=== PATIENT | female | born 1985 | race Caucasian/White ===

== ENCOUNTER → 2016-06-26 13:57 | Emergency (ER) | payer BC ==
[~2016-06-26 13:57] MED LIST: oxyCODONE/Acetamin 5/325 MG* TAB PO ONE
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
[2016-06-26 14:35] VITALS: BP 124/88
--- NOTE | 2016-06-26 14:54 | RAD ---
INDICATION: Left hand injury COMPARISON: None TECHNIQUE: AP, lateral, and oblique views were obtained. FINDINGS: No acute fracture is seen. The joint spaces and soft tissues appear normal. There are 4 rings which by report could not be removed. IMPRESSION: NO ACUTE FRACTURE IS IDENTIFIED.
--- NOTE | 2016-06-26 14:55 | RAD ---
INDICATION: Left wrist injury COMPARISON: None TECHNIQUE: AP, lateral, and oblique views were obtained. FINDINGS: The bony structures, joint spaces, and soft tissues are normal for age. IMPRESSION: NO ACUTE FRACTURE.
== END | disposition home or self-care (01) ==
LOC: ED 13:57
DX: S62.102A Fracture of unspecified carpal bone, left wrist, initial encounter for closed fracture (principal); M79.1 Myalgia; V86.59XA Driver of other special all-terrain or other off-road motor vehicle injured in nontraffic accident, initial encounter; Y93.9 Activity, unspecified; Y92.9 Unspecified place or not applicable; Y99.9 Unspecified external cause status
CPT/HCPCS: 99282; A9270-GY

== ENCOUNTER 2017-11-21 07:46 | Inpatient (IN) | payer BC, MEDICAID ==
--- NOTE | 2017-11-21 08:51 | HP ---
General Information - Reason for Visit IUP at 39-04/12 here for elective term induction - General Information Maternal Age: 31 Grav: 3 Para: 2 SAB: 0 IEA: 0 Estimated Due Date: 11/25/17 Determined By: Early Ultrasound Gestational Age in Weeks/Days: 39-7 Maternal Blood Type and Rh: A Positive - Results this Serology/RPR Result: Non-Reactive Rubella Result: Immune HBsAg Result: Negative HIV Result: Negative GBS Culture Result: Negative Past Medical History Delivery History: Hx Uncomplicated Vaginal Delivery Delivery History Comment: 08/2005 7lb male. [facility]. FOB #1 03/2008 7lb 7oz female. [facility]. FOB #1 Pertinent Past Medical History: See Records Past Medical History Comment: 2008 Kidney stones Migraine without aura Pertinent Past Surgical History: See Records Past Surgical History Comment: 2008 Lithotripsy with stents placed Pertinent Family History: See Records Family History Comment: PGF: . [place] - Antepartal Records Antepartal Records: Reviewed, Complicated by: - +Chlamydia, treated Review of Systems Constitutional: Comfortable CV Complaint: No Respiratory: Shortness of Breath: No Gastrointestinal: No Nausea/Vomiting, Normal Bowel Movement Genitourinary: No Dysuria, No Bleeding, No Leaking Fluid Musculoskeletal: No Complaint Neurological: No Headache, No Visual Changes Movement: Normal Exam Allergies/Adverse Reactions: Allergies No Known Allergies Allergy (Verified 06/26/16 15:23) BP 133/81 Repeat 126/74 HR 89 RR 18 T 97.2 SpO2 100% on RA - Measurements Height: 5 ft 2 in Weight: 169 lb Weight in lbs: 169.097874 Body Mass Index (BMI): 30.9 Pre- Weight: 130 lb Weight Gained This : 39 lbs and 0 ozs - Exam Breast: Breast Exam Deferred CVA: No CVA Tenderness Extremities: No Edema Heart: Normal Rhythm/Heart Sounds HEENT: No Significant Findings Lungs: Clear Bilaterally Rectal: Rectal Exam Deferred Reflexes: DTR 2+ Thyroid: No Thyromegaly - Abdominal Exam Abdomen Exam: Non-Tender - Ultrasound/Biophysical Profile Ultrasound Status: Not Done Targeted Exam Findings See L&D Outpatient Visit Provider Note for Findings: N/A Cervical Exam: 3cm Effacement: 80% Station: -1 Presenting Part: Vertex Membrane Status: Intact Sterile Speculum Exam: Not done Bleeding/Discharge: None EFM Findings - External Monitor Findings Baseline Heart Rate: 125 External Monitor Findings: Accelerations Present, No Pattern of Variable or Late Decelerations, Variability Moderate, Baseline Stable External Monitor Findings Comment: No evidence of metabolic acidemia Contractions: Irregular, Mild Assessment/Plan - Assessment IUP at 39-3/7 here for elective term induction Cervix favorable with Bishops score of 9 (11 with modifier of 2 previous SVDs) No evidence of metabolic acidemia - Obstetrical Risk Factors Risk Factors Comment: +Chlamydia x 2. Treated both times. Final JOE collected 11/17/17. Per lab result will be available by 1300 today. In consultation with neonatology ok to proceed with planned delivery. Treat with eye ointment per protocol and monitor closely for respiratory symptoms . Both pt and FOB aware and agree with plan - Plan Plan: Induction Plan Comment: Counseled for IV pitocin vs. oral or vaginal misoprostol. Pt prefers IV pitocin. Admit. Anticipate - Date/Time of Admission Date of Admission: 11/21/17 Time of Admission: 08:55
[2017-11-21] MEDS ORDERED: Oxytocin in LR* 20 UNITS/1,000 ML BAG IVPB SCH ×2 (09:00→18:00)
[2017-11-21 09:17] LABS: ABS Basophils 0.1 10^3/ul (0-0.2); ABS Eosinophils 0 10^3/ul (0-0.6); ABS Monocytes 0.8 10^3/ul (0-0.8); ABS Neutrophils 10.9 10^3/ul (1.5-7.7); ABS Nucleated RBC 0 10^3/ul; Eosinophil % 0.2 % (0-6); Hematocrit 34 % (35-47); Hemoglobin 11.8 g/dl (12.0-16.0); Lymphocyte % 20.4 % (25-47); Mean Corpuscular HGB Conc 34 g/dl (31-36); Mean Corpuscular Hemoglobin 27 pg (27-31); Mean Corpuscular Volume 78 fL (80-97); Mean Platelet Volume 8.7 um3 (7.4-10.4); Nucleated Red Blood Cells % 0.1; Platelet Count 247 10^3/ul (150-450); Red Blood Count 4.41 10^6/ul (4.00-5.40); Red Cell Distribution Width 13 % (10.5-15); White Blood Count 14.8 10^3/ul (3.5-10.8)
--- NOTE | 2017-11-21 13:54 | PN ---
Progress Note - Progress Note Date of Service: 11/21/17 Note: S: Pt more aware of UCs but coping well. FOB at bedside supporting her O: BP 125/74 HR 64 FHT 120bpm. Moderate variability. +Accels. No decels UCs q 2-3 min. IV pit at 12mu/min VE: 4cm/80%/vtx -1 AROM clear fluid A: IUP at 39-3/7 here for IOL No evidence of metabolic acidemia Early active labor P: Pt will request pain mgmt PRN. Continue IV pitocin. Close monitoring of maternal/ status
[2017-11-21] MEDS ORDERED: Azithromycin TAB* 250 MG PO ONE (14:29)
[2017-11-21] MEDS ORDERED: OBEPIDURAL* 250 ML EPIDURAL ONE (14:42)
[2017-11-21] MEDS ORDERED: Phenylephrine IV* 40 MCG/ML 10 ML SYRINGE IV PUSH PRN ×2 (15:11)
[2017-11-21] MEDS ORDERED: Famotidine TAB* 20 MG PO PRN (15:11)
[2017-11-21] MEDS ORDERED: EPHEDrine (Pressors)* 50 MG/ML VIAL IV PUSH PRN ×2 (15:11)
[2017-11-21] MEDS ORDERED: Sodium Citrate/Citric Acid* 15 ML UDC PO PRN (15:11)
[2017-11-21] MEDS ORDERED: OBEPIDURAL* 250 ML EPIDURAL SCH (16:00)
[2017-11-21] MEDS ORDERED: fentaNYL* 50 MCG/ML 2 ML VIAL (100 MCG VIAL) ONE (16:48)
[2017-11-21] MEDS: Tranexamic Acid 1,000 MG/10 ML SDV IV ONE ×2 (16:55→17:52)
[2017-11-21] MEDS ORDERED: Misoprostol TAB* 200 MCG ONE (17:01)
[2017-11-21] MEDS ORDERED: ceFOXitin 2 GM IVPREMIX* 2 GM/50 ML BAG IVPB ONE (17:06)
[2017-11-21] MEDS ORDERED: fentaNYL* 50 MCG/ML 2 ML VIAL (100 MCG VIAL) IV SLOW PU ONE (17:06)
[2017-11-21] MEDS ORDERED: Carboprost Tromethamine* 250 MCG INJ ONE ×3 (17:10→19:26)
[2017-11-21 17:26] LABS: Hematocrit 32 % (35-47); Hemoglobin 10.9 g/dl (12.0-16.0); Mean Corpuscular HGB Conc 34 g/dl (31-36); Mean Corpuscular Hemoglobin 27 pg (27-31); Mean Corpuscular Volume 80 fL (80-97); Mean Platelet Volume 7.8 um3 (7.4-10.4); Platelet Count 207 10^3/ul (150-450); Red Blood Count 4.06 10^6/ul (4.00-5.40); Red Cell Distribution Width 14 % (10.5-15); White Blood Count 27.8 10^3/ul (3.5-10.8)
[2017-11-21] MEDS ORDERED: Carboprost Tromethamine* 250 MCG INJ IM ONE (17:31)
[2017-11-21] MEDS ORDERED: Methylergonovine INJ* 0.2 MG/ML 1ML AMP IM ONE (17:31)
[2017-11-21] MEDS ORDERED: Glycerin ADULT SUPP PR PRN (17:31)
[2017-11-21] MEDS ORDERED: Dibucaine 1% 28.35 GM TUBE PR PRN (17:31)
[2017-11-21] MEDS ORDERED: Witch Hazel PAD* JAR TOPICAL PRN (17:31)
[2017-11-21] MEDS ORDERED: Misoprostol TAB* 200 MCG PR ONE (17:31)
[2017-11-21 17:51] LABS: ABS Basophils 0.2 10^3/ul (0-0.2); ABS Eosinophils 0 10^3/ul (0-0.6); ABS Lymphocytes 1.4 10^3/ul (1.0-4.8); ABS Monocytes 0.4 10^3/ul (0-0.8); ABS Neutrophils 25.7 10^3/ul (1.5-7.7)
[2017-11-21 17:52] LABS: ABS Nucleated RBC 0 10^3/ul
[2017-11-21 17:56] LABS: ABS Basophils 0 10^3/ul (0-0.2); Monocytes % 1 % (0-7)
--- NOTE | 2017-11-21 18:38 | PROCNOTE ---
[facility] OB: Delivery Note - Delivery A Date of : 11/21/17 Time of : 16:35 [place] Sex: Female Weight at : 7 lb 1 oz Score 1 Minute: 7 Score 5 Minutes: 9 Gestational Age in Weeks and Days at Delivery: 39 Weeks and 3 Days Delivery Method: Spontaneous Vaginal Labor: Induced Did Patient attempt ?: N/A, No Previous Amniotic Fluid: Clear Estimated Blood Loss: 2,000 Anesthesia/Analgesia: CEI for Labor Anesthesia Comment: Epidural placed by Dr. Bill Delivered By: Arnel Nicholas - Nursery Level of Nursery: Regular/Bedside - Perineum Perineal Injury Comment: Vaginal abrasion at introitus. Repaired with 3-0 Rapide Perineal Repair: By Delivering Practioner - Events Delivery Events of Note: Pitocin During Labor, Supplemental O2 to Mother, Post- Bleeding - Meds Given, Manual Removal of Placenta - By Dr. Paez, D+C Post-Delivery - Pt transported to OR at the time of this note, Internal Scalp EKG Delivery Events of Note Comment: Category II FHT with rapid cervical change from 6cm to complete. Down to 70bpm. Recovered to 90's/100's and moderate variability maintained. Supplemental O2 to mother, IV pitocin discontinued, IV fluids administered, FSE applied. Neonatology and ob-regulator tester paged to attend delivery. Given rapid cervical change and strong maternal pushing effort able to proceed with normal vaginal - Risk for Falls Delivered OB Patient- Risk for Falls: Heavy Bleeding Fall Risk: Patient is at High Risk for Falls - Additional Delivery Notes Additional Delivery Notes: Pt admitted for elective term induction of labor. IV pitocin and amniotomy to clear fluid resulted in onset active labor. As above rapid progression from 6cm to complete and category II FHT noted with decels down to 70bpm. Recovered to 90 's-100's and moderate variability maintained. Length of active phase 3 hours, 9 min. Pushed x 30 min. liveborn female. Slow, controlled delivery of head. Direct OP to LOP. Shoulders followed easily. to maternal abdomen. Cord pulsed x 30 seconds per neonatology. Cord then clamped and cut and moved to warmer for further evaluation by neonatology and special care nurse. Apgars 7/9. With gentle cord traction cord avulsed. Dr. Paez paged to bedside for assistance with delivery of placenta. Manual removal of placenta by MD see MD note for all management going forward.
[2017-11-21] MEDS ORDERED: Midazolam* 1 MG/ML 5 ML VIAL (5 MG) ONE (18:40)
[2017-11-21] MEDS ORDERED: KETAMINE HCL* 50 MG/ML 10 ML VIAL ONE (18:45)
[2017-11-21] MEDS ORDERED: Lidocaine 2% PF * 5 ML VIAL ONE (19:05)
[2017-11-21 19:12] LABS: Hematocrit 31 % (35-47); Hemoglobin 10.4 g/dl (12.0-16.0); Mean Corpuscular HGB Conc 34 g/dl (31-36); Mean Corpuscular Hemoglobin 29 pg (27-31); Mean Corpuscular Volume 84 fL (80-97); Red Blood Count 3.64 10^6/ul (4.00-5.40); Red Cell Distribution Width 17 % (10.5-15)
[2017-11-21 19:37] LABS: Hematocrit 29 % (35-47); Mean Corpuscular HGB Conc 34 g/dl (31-36); Mean Corpuscular Hemoglobin 29 pg (27-31); Mean Corpuscular Volume 84 fL (80-97); Red Blood Count 3.49 10^6/ul (4.00-5.40); Red Cell Distribution Width 16 % (10.5-15); White Blood Count 16.6 10^3/ul (3.5-10.8)
[2017-11-21 19:43] LABS: INR 1.2 (0.77-1.02)
[2017-11-21] MEDS ORDERED: Magnesium Sulfate IV* 3 GM in NS 0.9% 100 ML* 100 ML IVPB ONE (20:30)
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
[2017-11-21] MEDS ORDERED: Ondansetron INJ* 2 MG/ML VIAL IV PRN (20:48)
[2017-11-21] MEDS ORDERED: Morphine VIAL* 4 MG/ML VIAL (1 ml vial) IV PRN (21:06)
[2017-11-21 21:08] LABS: EGFR Non-African American 46.6 (>60)
[2017-11-21 21:20] LABS: ABS Basophils 0.1 10^3/ul (0-0.2); ABS Eosinophils 0 10^3/ul (0-0.6); ABS Lymphocytes 0.6 10^3/ul (1.0-4.8); ABS Monocytes 0.8 10^3/ul (0-0.8); ABS Neutrophils 14.4 10^3/ul (1.5-7.7); ABS Nucleated RBC 0 10^3/ul; Eosinophil % 0.1 % (0-6); Lymphocyte % 3.9 % (25-47); Mean Platelet Volume 7.2 um3 (7.4-10.4); Nucleated Red Blood Cells % 0.1; Platelet Count 78 10^3/ul (150-450)
[2017-11-21 21:22] LABS: ABS Basophils 0 10^3/ul (0-0.2); ABS Eosinophils 0 10^3/ul (0-0.6); ABS Lymphocytes 0.9 10^3/ul (1.0-4.8); ABS Monocytes 1.1 10^3/ul (0-0.8); ABS Neutrophils 14.6 10^3/ul (1.5-7.7); ABS Nucleated RBC 0 10^3/ul; Eosinophil % 0.1 % (0-6); Lymphocyte % 5.2 % (25-47); Mean Platelet Volume 7.1 um3 (7.4-10.4); Nucleated Red Blood Cells % 0; Platelet Count 77 10^3/ul (150-450)
[2017-11-21] MEDS: ceFOXitin 2 GM IVPREMIX* 2 GM/50 ML BAG IVPB SCH (21:54)
[2017-11-21] MEDS: Docusate CAP* 100 MG PO SCH (22:39)
[2017-11-21 23:00] LABS: Mean Platelet Volume 7.4 um3 (7.4-10.4); Platelet Count 80 10^3/ul (150-450)
[2017-11-21] MEDS: Simethicone TAB* 80 MG TAB.CHEW PO SCH (23:07)
[2017-11-22] LABS: INR 1.09 (0.77-1.02)
[2017-11-22 00:03] LABS: Hematocrit 27 % (35-47); Hemoglobin 9.2 g/dl (12.0-16.0); Mean Corpuscular HGB Conc 35 g/dl (31-36); Mean Corpuscular Hemoglobin 29 pg (27-31); Mean Corpuscular Volume 83 fL (80-97); Mean Platelet Volume 7.6 um3 (7.4-10.4); Platelet Count 80 10^3/ul (150-450); Red Cell Distribution Width 16 % (10.5-15); White Blood Count 20.4 10^3/ul (3.5-10.8)
[2017-11-22 00:22] LABS: EGFR Non-African American 41.8 (>60)
[2017-11-22 02:12] LABS: Hematocrit 22 % (35-47); Hemoglobin 7.8 g/dl (12.0-16.0); Mean Corpuscular HGB Conc 35 g/dl (31-36); Mean Corpuscular Hemoglobin 29 pg (27-31); Mean Corpuscular Volume 82 fL (80-97); Mean Platelet Volume 7.4 um3 (7.4-10.4); Platelet Count 100 10^3/ul (150-450); Red Blood Count 2.71 10^6/ul (4.00-5.40); Red Cell Distribution Width 16 % (10.5-15); White Blood Count 21.1 10^3/ul (3.5-10.8)
[2017-11-22 02:28] LABS: EGFR Non-African American 42.5 (>60)
[2017-11-22 02:35] LABS: INR 1.02 (0.77-1.02)
[2017-11-22] MEDS: ceFOXitin 2 GM IVPREMIX* 2 GM/50 ML BAG IVPB SCH ×3 (03:36→16:58)
[2017-11-22 06:16] LABS: Hematocrit 27 % (35-47); Hemoglobin 9.3 g/dl (12.0-16.0); Mean Corpuscular HGB Conc 34 g/dl (31-36); Mean Corpuscular Hemoglobin 29 pg (27-31); Mean Corpuscular Volume 83 fL (80-97); Mean Platelet Volume 7.9 um3 (7.4-10.4); Platelet Count 92 10^3/ul (150-450); Red Blood Count 3.24 10^6/ul (4.00-5.40); Red Cell Distribution Width 17 % (10.5-15); White Blood Count 20.1 10^3/ul (3.5-10.8)
[2017-11-22 06:33] LABS: EGFR Non-African American 41.5 (>60)
[2017-11-22 06:38] LABS: INR 0.97 (0.77-1.02)
--- NOTE | 2017-11-22 07:56 | RAD ---
HISTORY: dyspnea COMPARISONS: None VIEWS: 1: frontal AP view of the chest at 8:41 PM FINDINGS: LINES AND TUBES: None. CARDIOMEDIASTINAL SILHOUETTE: The cardiomediastinal silhouette is normal for portable technique. PLEURA: The costophrenic angles are sharp. No pleural abnormalities are noted. LUNG PARENCHYMA: The lungs are clear. ABDOMEN: The upper abdomen is clear. There is no subphrenic gas. BONES AND SOFT TISSUES: No bone or soft tissue abnormalities are noted. IMPRESSION: NO ACTIVE CARDIOPULMONARY DISEASE. R1
[2017-11-22] MEDS: Ibuprofen TAB* 600 MG PO PRN ×2 (08:37→13:41)
[2017-11-22] MEDS: Docusate CAP* 100 MG PO SCH ×3 (08:37→21:15)
[2017-11-22] MEDS: Ferrous Gluconate TAB* 324 MG TAB PO SCH ×2 (08:37→21:15)
[2017-11-22] MEDS: Simethicone TAB* 80 MG TAB.CHEW PO SCH ×4 (08:37→21:15)
--- NOTE | 2017-11-22 09:33 | PN ---
Date of Service: 11/22/17 Critical Care Services: 31F with migraines, kidney stones presents for post hemorrage s/p D&E. Massive transfusion protocol. 11/22: Doing better this AM. Bleeding is slowing. BP stable. Received total 10u PRBC, 20u cryo, 7u FFP, 1u Plt total. Vital Signs: Temp Pulse Resp BP SpO2 FiO2 98.1 F 67 20 141/69 97 11/22/17 08:00 11/22/17 08:00 11/22/17 08:00 11/22/17 08:00 11/22/17 08:00 Physical Exam: Gen - NAD Heent - ncat, eomi, perrl neck - no jvd cv - s1/s2, no murmur lungs - cta, no wheeze Abd - soft, no, nt ext - no cce neuro - non-focal Fluid Balance (Past 24 Hours): I= O= Net Intake & Output 11/20/17 11/21/17 11/22/17 11/23/17 06:59 06:59 06:59 06:59 Intake Total 1506 Output Total 2325 550 Balance -819 -550 Weight 79.3 kg Intake: IV Fluids 140 NS (0.9%) 140 IVPB 100 ABX - CEFOXITIN 100 Medicated IV 99 GEN - Magnesium 99 Oral 0 Packed Cells 567 Platelets 600 Output: [place] 2325 550 Other: Date of Last Bowel 11/22/17 Movement # Bowel Movements 1 Estimated Stool Amount Small Labs: Laboratory Results - last 24 hr 11/21/17 11/21/17 11/21/17 08:55 14:22 17:13 WBC 27.8 H RBC 4.06 Hgb 10.9 L Hct 32 L MCV 80 MCH 27 MCHC 34 RDW 14 Plt Count 207 MPV 7.8 Neut % (Auto) Not Reportable Lymph % (Auto) Not Reportable [place] % (Auto) Not Reportable Eos % (Auto) Not Reportable Baso % (Auto) Not Reportable Absolute Neuts (auto) 25.7 H Absolute Lymphs (auto) 1.4 Absolute Monos (auto) 0.4 Absolute Eos (auto) 0 Absolute Basos (auto) 0.2 Absolute Nucleated RBC 0 Immature Gran % 10 H Neutrophils % 79 Band Neutrophils % 9 H Lymphocytes % 10 L Monocytes % 1 Eosinophils % 0 Basophils % 0 Metamyelocytes % 1 Nucleated RBC % Not Reportable Abs Neuts (Manual) 22.0 H Abs Lymphs (Manual) 2.8 Abs Monocytes (Manual) 0.3 Absolute Eos (Manual) 0 Abs Basophils (Manual) 0 Normal RBC Morphology Normal INR (Anticoag Therapy) APTT Fibrinogen Sodium 138 Potassium TNP Chloride 110 Carbon Dioxide 20 L Anion Gap 8 BUN 13 Creatinine 1.32 H Est GFR ( Amer) 56.4 Est GFR (Non-Af Amer) 46.6 BUN/Creatinine Ratio 9.8 Glucose 93 Calcium 7.4 L Magnesium Blood Type A Positive Antibody Screen Negative Crossmatch See Detail 11/21/17 11/21/17 11/21/17 17:13 18:55 18:55 WBC 16.0 H RBC 3.64 L Hgb 10.4 L Hct 31 L MCV 84 MCH 29 MCHC 34 RDW 17 H Plt Count 78 L D MPV 7.2 L Neut % (Auto) 90.5 H Lymph % (Auto) 3.9 L [place] % (Auto) 5.1 Eos % (Auto) 0.1 Baso % (Auto) 0.4 Absolute Neuts (auto) 14.4 H Absolute Lymphs (auto) 0.6 L Absolute Monos (auto) 0.8 Absolute Eos (auto) 0 Absolute Basos (auto) 0.1 Absolute Nucleated RBC 0 Immature Gran % Neutrophils % Band Neutrophils % Lymphocytes % Monocytes % Eosinophils % Basophils % Metamyelocytes % Nucleated RBC % 0.1 Abs Neuts (Manual) Abs Lymphs (Manual) Abs Monocytes (Manual) Absolute Eos (Manual) Abs Basophils (Manual) Normal RBC Morphology INR (Anticoag Therapy) TNP 1.30 H APTT TNP 41.7 H Fibrinogen TNP < 48.8 L* Sodium Potassium Chloride Carbon Dioxide Anion Gap BUN Creatinine Est GFR ( Amer) Est GFR (Non-Af Amer) BUN/Creatinine Ratio Glucose Calcium Magnesium Blood Type Antibody Screen Crossmatch 11/21/17 11/21/17 11/21/17 19:22 19:22 19:22 WBC 16.6 H RBC 3.49 L Hgb 10.0 L Hct 29 L MCV 84 MCH 29 MCHC 34 RDW 16 H Plt Count 77 L MPV 7.1 L Neut % (Auto) 88.1 H Lymph % (Auto) 5.2 L [place] % (Auto) 6.4 Eos % (Auto) 0.1 Baso % (Auto) 0.2 Absolute Neuts (auto) 14.6 H Absolute Lymphs (auto) 0.9 L Absolute Monos (auto) 1.1 H Absolute Eos (auto) 0 Absolute Basos (auto) 0 Absolute Nucleated RBC 0 Immature Gran % Neutrophils % Band Neutrophils % Lymphocytes % Monocytes % Eosinophils % Basophils % Metamyelocytes % Nucleated RBC % 0 Abs Neuts (Manual) Abs Lymphs (Manual) Abs Monocytes (Manual) Absolute Eos (Manual) Abs Basophils (Manual) Normal RBC Morphology INR (Anticoag Therapy) 1.20 H APTT 38.6 H Fibrinogen 70.8 L* Sodium Potassium Chloride Carbon Dioxide Anion Gap BUN Creatinine Est GFR ( Amer) Est GFR (Non-Af Amer) BUN/Creatinine Ratio Glucose Calcium 7.3 L Magnesium 1.2 L Blood Type Antibody Screen Crossmatch 11/21/17 11/21/17 11/21/17 22:13 22:13 22:13 WBC RBC Hgb Hct MCV MCH MCHC RDW Plt Count 80 L MPV 7.4 Neut % (Auto) Lymph % (Auto) [place] % (Auto) Eos % (Auto) Baso % (Auto) Absolute Neuts (auto) Absolute Lymphs (auto) Absolute Monos (auto) Absolute Eos (auto) Absolute Basos (auto) Absolute Nucleated RBC Immature Gran % Neutrophils % Band Neutrophils % Lymphocytes % Monocytes % Eosinophils % Basophils % Metamyelocytes % Nucleated RBC % Abs Neuts (Manual) Abs Lymphs (Manual) Abs Monocytes (Manual) Absolute Eos (Manual) Abs Basophils (Manual) Normal RBC Morphology INR (Anticoag Therapy) APTT Fibrinogen Sodium 135 Potassium 3.8 3.8 Chloride 110 Carbon Dioxide 20 L Anion Gap 5 BUN 16 Creatinine 1.45 H Est GFR ( Amer) 50.6 Est GFR (Non-Af Amer) 41.8 BUN/Creatinine Ratio 11.0 Glucose 108 H Calcium 7.7 L Magnesium 1.8 L Blood Type Antibody Screen Crossmatch 11/21/17 11/21/17 11/22/17 22:13 22:13 02:01 WBC 20.4 H RBC 3.20 L Hgb 9.2 L Hct 27 L MCV 83 MCH 29 MCHC 35 RDW 16 H Plt Count 80 L MPV 7.6 Neut % (Auto) Lymph % (Auto) [place] % (Auto) Eos % (Auto) Baso % (Auto) Absolute Neuts (auto) Absolute Lymphs (auto) Absolute Monos (auto) Absolute Eos (auto) Absolute Basos (auto) Absolute Nucleated RBC Immature Gran % Neutrophils % Band Neutrophils % Lymphocytes % Monocytes % Eosinophils % Basophils % Metamyelocytes % Nucleated RBC % Abs Neuts (Manual) Abs Lymphs (Manual) Abs Monocytes (Manual) Absolute Eos (Manual) Abs Basophils (Manual) Normal RBC Morphology INR (Anticoag Therapy) 1.09 H APTT Fibrinogen 138.9 Sodium 135 Potassium 3.7 Chloride 107 Carbon Dioxide 22 Anion Gap 6 BUN 17 Creatinine 1.43 H Est GFR ( Amer) 51.5 Est GFR (Non-Af Amer) 42.5 BUN/Creatinine Ratio 11.9 Glucose 110 H Calcium 7.7 L Magnesium 1.9 Blood Type Antibody Screen Crossmatch 11/22/17 11/22/17 11/22/17 02:01 02:01 05:55 WBC 21.1 H RBC 2.71 L Hgb 7.8 L Hct 22 L MCV 82 MCH 29 MCHC 35 RDW 16 H Plt Count 100 L MPV 7.4 Neut % (Auto) Lymph % (Auto) [place] % (Auto) Eos % (Auto) Baso % (Auto) Absolute Neuts (auto) Absolute Lymphs (auto) Absolute Monos (auto) Absolute Eos (auto) Absolute Basos (auto) Absolute Nucleated RBC Immature Gran % Neutrophils % Band Neutrophils % Lymphocytes % Monocytes % Eosinophils % Basophils % Metamyelocytes % Nucleated RBC % Abs Neuts (Manual) Abs Lymphs (Manual) Abs Monocytes (Manual) Absolute Eos (Manual) Abs Basophils (Manual) Normal RBC Morphology INR (Anticoag Therapy) 1.02 APTT Fibrinogen 182.9 Sodium 135 Potassium 4.0 Chloride 108 Carbon Dioxide 23 Anion Gap 4 BUN 17 Creatinine 1.46 H Est GFR ( Amer) 50.2 Est GFR (Non-Af Amer) 41.5 BUN/Creatinine Ratio 11.6 Glucose 96 Calcium 7.8 L Magnesium 1.8 L Blood Type Antibody Screen Crossmatch 11/22/17 11/22/17 05:55 05:55 WBC 20.1 H RBC 3.24 L Hgb 9.3 L Hct 27 L MCV 83 MCH 29 MCHC 34 RDW 17 H Plt Count 92 L MPV 7.9 Neut % (Auto) Lymph % (Auto) [place] % (Auto) Eos % (Auto) Baso % (Auto) Absolute Neuts (auto) Absolute Lymphs (auto) Absolute Monos (auto) Absolute Eos (auto) Absolute Basos (auto) Absolute Nucleated RBC Immature Gran % Neutrophils % Band Neutrophils % Lymphocytes % Monocytes % Eosinophils % Basophils % Metamyelocytes % Nucleated RBC % Abs Neuts (Manual) Abs Lymphs (Manual) Abs Monocytes (Manual) Absolute Eos (Manual) Abs Basophils (Manual) Normal RBC Morphology INR (Anticoag Therapy) 0.97 APTT Fibrinogen 231.3 Sodium Potassium Chloride Carbon Dioxide Anion Gap BUN Creatinine Est GFR ( Amer) Est GFR (Non-Af Amer) BUN/Creatinine Ratio Glucose Calcium Magnesium Blood Type Antibody Screen Crossmatch Studies: CXR 11/22 IMPRESSION: NO ACTIVE CARDIOPULMONARY DISEASE. Impression: 31F presents after post hemorrage Plan: Neuro - pain control CV - bp stable Pulm - oxygenating well on room air - cxr negative ID - wbc elevated - afebrile - will give 1 day of cefoxitin in setting of PPH as she is high risk for endometritis GI - advance diet as tolerated Renal - valerie - 2/2 hemorrhage and volume depletion - iv hydration - monitor i/o - monitor lytes Heme - PPH - s/p 10 units of prbc, 7 units of FFP, 20 unit of cryo - received cytotec, hemabate, oxytocin, tranexamic acid - serial cbc, bmp, inr, fibrinogen - transfuse prn - monitor for continued bleeding Endo - no issue Compressor Assembler - not breast feeding Lines - audrey chu PPx - gi/dvt Full Code Critical Care Time: 55 mins
[2017-11-22] MEDS ORDERED: Magnesium Sulfate 1 GM IV* 1 GM/100 ML BAG IV ONE ×2 (10:00→12:30)
[2017-11-22 10:57] LABS: INR 0.95 (0.77-1.02)
[2017-11-22 11:05] LABS: Hematocrit 23 % (35-47); Hemoglobin 7.9 g/dl (12.0-16.0); Mean Corpuscular HGB Conc 35 g/dl (31-36); Mean Corpuscular Hemoglobin 29 pg (27-31); Mean Corpuscular Volume 83 fL (80-97); Mean Platelet Volume 7.8 um3 (7.4-10.4); Platelet Count 75 10^3/ul (150-450); Red Cell Distribution Width 17 % (10.5-15); White Blood Count 16.3 10^3/ul (3.5-10.8)
[2017-11-22 11:16] LABS: EGFR Non-African American 48.3 (>60)
[2017-11-22] MEDS ORDERED: Potassium Chlor TAB* 20 MEQ TAB.ER PO ONE (11:42)
[2017-11-22] MEDS: Oxytocin in LR* 20 UNITS/1,000 ML BAG IVPB SCH ×2 (12:40→21:17)
--- NOTE | 2017-11-22 13:28 | OP ---
CC: Arnel Nicholas of [facility] OPERATIVE REPORT: DATE OF OPERATION: 11/21/17 DATE OF : 83 SURGEON: Cole Paez MD SUPERVISOR FRAME SAMPLE AND PATTERN: None. ANESTHESIA: The patient was given 50 mcg of fentanyl for analgesia. PRE-OP DIAGNOSIS: The patient is status post spontaneous vaginal delivery with retained placenta. POST-OP DIAGNOSIS: The patient is status post spontaneous vaginal delivery with retained placenta. OPERATIVE PROCEDURE: Manual removal of the placenta. ESTIMATED BLOOD LOSS: For this procedure was about 400 cc. DESCRIPTION OF PROCEDURE: The patient was in the Labor and Delivery room after having had a spontane ous vaginal delivery. The cord from the placenta avulsed and the placenta was retained within the ut erus 20 to 25 minutes after delivery. There was no active bleeding. I proceeded to give the patient pain relief with 50 mcg of fentanyl IV push after which we waited couple of minutes. Once the patie nt was comfortable, I proceeded with manual removal of the placenta. Hand was inserted into the vagi na, followed the placenta to the fundus of the uterus. I proceeded to remove the placenta in total b y it from the uterine cavity and exploring the uterine cavity, did not feel any placenta r emnant that remained inside. The placenta was removed intact after which the patient had a gush of b lood, 400 cc of blood, which immediately resolved. The patient was then given 800 mcg of Cytotec per rectum and Pitocin IV for hemorrhage. The patient was then left the Labor and Delivery R oom in stable condition with IV fluids running. [id number]/[facility] #: [id number]
--- NOTE | 2017-11-22 15:55 | OP ---
OPERATIVE REPORT: DATE OF OPERATION: 11/21/17 DATE OF : 83 SURGEON: Cole Paez MD COMMUTATOR PRESSER: Dr. Epps. ANESTHESIA: Sedation under monitored anesthesia care. PRE-OP DIAGNOSIS: Severe hemorrhage after vaginal delivery and manual removal of retained placenta POST-OP DIAGNOSIS: OPERATIVE PROCEDURE: Exam under anesthesia and dilation and evacuation with suction curettage. ESTIMATED BLOOD LOSS: 400 cc. URINE OUTPUT: Minimal. COMPLICATIONS: There were no complications. FINDINGS: On exam under anesthesia, the patient had a nonexpanding hematoma at the perineum. The vaginal mucosa and cervix was intact with no lacerations. The uterus was enlarged with trickle of bright blood. The external genitalia was within normal limits. The patient was taken to the operating room where she was identified, she was placed on the operating room table where sedation was obtained. She was placed in a dorsal lithotomy position, prepped and draped in a normal sterile fashion. Exam under anesthesia then revealed findings as noted above. A weighted speculum was then inserted into the patient 's vagina. The cervix was then identified and under direct ultrasound visualization, I proceeded to do a dilation and evacuation with a 14 straight suction curette which was introduced through the cervix up to the fundus of the uterus. Suction was then applied and a suction curettage performed. There was minimal to almost no tissue or blood removed from the suction curettage. After this, the instruments were removed from the patient's vagina. The patient was then treated medically with a Hemabate 2 doses with 200 mcg IM. She was then in the operating room. The bleeding had stabilized and the sponge, lap, and needle counts were correct x2. She was then transferred to the ICU in stable condition. [id number]/[facility] #: [id number] [facility]
[2017-11-22 19:12] LABS: ABS Basophils 0.1 10^3/ul (0-0.2); ABS Eosinophils 0.1 10^3/ul (0-0.6); ABS Lymphocytes 3.1 10^3/ul (1.0-4.8); ABS Monocytes 1.1 10^3/ul (0-0.8); ABS Neutrophils 13.1 10^3/ul (1.5-7.7); ABS Nucleated RBC 0 10^3/ul; Eosinophil % 0.3 % (0-6); Hematocrit 26 % (35-47); Lymphocyte % 17.7 % (25-47); Mean Corpuscular HGB Conc 35 g/dl (31-36); Mean Corpuscular Hemoglobin 30 pg (27-31); Mean Corpuscular Volume 85 fL (80-97); Mean Platelet Volume 8.1 um3 (7.4-10.4); Nucleated Red Blood Cells % 0; Platelet Count 102 10^3/ul (150-450); Red Blood Count 3.05 10^6/ul (4.00-5.40); Red Cell Distribution Width 17 % (10.5-15); White Blood Count 17.4 10^3/ul (3.5-10.8)
[2017-11-22 19:23] LABS: EGFR Non-African American 40.9 (>60)
[2017-11-22 22:15] LABS: ABS Basophils 0.1 10^3/ul (0-0.2); ABS Eosinophils 0.1 10^3/ul (0-0.6); ABS Lymphocytes 3.5 10^3/ul (1.0-4.8); ABS Neutrophils 12.9 10^3/ul (1.5-7.7); ABS Nucleated RBC 0 10^3/ul; Eosinophil % 0.5 % (0-6); Hematocrit 26 % (35-47); Hemoglobin 9.1 g/dl (12.0-16.0); Mean Corpuscular HGB Conc 35 g/dl (31-36); Mean Corpuscular Hemoglobin 30 pg (27-31); Mean Corpuscular Volume 85 fL (80-97); Nucleated Red Blood Cells % 0.1; Platelet Count 108 10^3/ul (150-450); Red Blood Count 3.05 10^6/ul (4.00-5.40); Red Cell Distribution Width 17 % (10.5-15); White Blood Count 17.6 10^3/ul (3.5-10.8)
[2017-11-22 22:31] LABS: EGFR Non-African American 47.9 (>60)
[2017-11-23 05:06] LABS: ABS Basophils 0 10^3/ul (0-0.2); ABS Eosinophils 0.1 10^3/ul (0-0.6); ABS Monocytes 0.9 10^3/ul (0-0.8); ABS Neutrophils 11.9 10^3/ul (1.5-7.7); ABS Nucleated RBC 0 10^3/ul; Eosinophil % 0.7 % (0-6); Hematocrit 26 % (35-47); Hemoglobin 8.9 g/dl (12.0-16.0); Lymphocyte % 18.7 % (25-47); Mean Corpuscular HGB Conc 34 g/dl (31-36); Mean Corpuscular Hemoglobin 29 pg (27-31); Mean Corpuscular Volume 85 fL (80-97); Nucleated Red Blood Cells % 0.1; Platelet Count 102 10^3/ul (150-450); Red Blood Count 3.05 10^6/ul (4.00-5.40); Red Cell Distribution Width 17 % (10.5-15); White Blood Count 15.9 10^3/ul (3.5-10.8)
[2017-11-23 05:30] LABS: EGFR Non-African American 53.1 (>60)
[2017-11-23] MEDS: Docusate CAP* 100 MG PO SCH ×3 (07:42→19:59)
--- NOTE | 2017-11-23 08:53 | PN ---
Date of Service: 11/23/17 Critical Care Services: 31F with migraines, kidney stones presents for post hemorrage s/p D&E. Massive transfusion protocol. 11/22: Doing better this AM. Bleeding is slowing. BP stable. Received total 10u PRBC, 20u cryo, 7u FFP, 1u Plt total. 11/23: Hgb stable. oxytocin gtt discontinued. Patient reports feeling better. Vital Signs: Temp Pulse Resp BP SpO2 FiO2 98 F 64 18 157/73 98 11/23/17 07:52 11/23/17 08:01 11/23/17 08:01 11/23/17 08:00 11/23/17 08:01 Physical Exam: Gen - NAD Heent - ncat, eomi, perrl neck - no jvd cv - s1/s2, no murmur lungs - cta, no wheeze Abd - soft, no, nt ext - no cce neuro - non-focal Fluid Balance (Past 24 Hours): I= O= Net Intake & Output 11/21/17 11/22/17 11/23/17 11/24/17 06:59 06:59 06:59 06:59 Intake Total 1506 3349 Output Total 2325 2125 425 Balance -819 1224 -425 Weight 79.3 kg 81.3 kg Intake: IV Fluids 140 543 NS (0.9%) 140 143 PB- Magnesium Sulfate 400 IVPB 100 274 ABX - CEFOXITIN 100 161 PB- Magnesium Sulfate 113 Medicated IV 99 767 GEN - Magnesium 99 GEN - Oxytocin 767 Oral 0 920 Packed Cells 567 332 Fresh Frozen Plasma 293 Platelets 600 220 Output: Urine 600 [place] 2325 1525 425 Other: Date of Last Bowel 11/22/17 Movement # Bowel Movements 1 Estimated Stool Amount Small Labs: Laboratory Results - last 24 hr 11/21/17 11/21/17 11/22/17 08:55 18:55 10:23 WBC RBC Hgb Hct MCV MCH MCHC RDW Plt Count MPV Neut % (Auto) Lymph % (Auto) [place] % (Auto) Eos % (Auto) Baso % (Auto) Absolute Neuts (auto) Absolute Lymphs (auto) Absolute Monos (auto) Absolute Eos (auto) Absolute Basos (auto) Absolute Nucleated RBC Nucleated RBC % Hem Pathologist Commnt INR (Anticoag Therapy) Fibrinogen Sodium 138 Potassium 3.6 Chloride 109 Carbon Dioxide 23 Anion Gap 6 BUN 17 Creatinine 1.28 H Est GFR ( Amer) 58.5 Est GFR (Non-Af Amer) 48.3 BUN/Creatinine Ratio 13.3 Glucose 97 Calcium 7.6 L Magnesium 1.8 L Blood Type A Positive Antibody Screen Negative Crossmatch See Detail 11/22/17 11/22/17 11/22/17 10:23 10:23 18:45 WBC 16.3 H RBC 2.70 L Hgb 7.9 L Hct 23 L MCV 83 MCH 29 MCHC 35 RDW 17 H Plt Count 75 L MPV 7.8 Neut % (Auto) Lymph % (Auto) [place] % (Auto) Eos % (Auto) Baso % (Auto) Absolute Neuts (auto) Absolute Lymphs (auto) Absolute Monos (auto) Absolute Eos (auto) Absolute Basos (auto) Absolute Nucleated RBC Nucleated RBC % Hem Pathologist Commnt INR (Anticoag Therapy) 0.95 Fibrinogen 246.2 Sodium 138 Potassium 4.1 Chloride 109 Carbon Dioxide 25 Anion Gap 4 BUN 19 Creatinine 1.48 H Est GFR ( Amer) 49.5 Est GFR (Non-Af Amer) 40.9 BUN/Creatinine Ratio 12.8 Glucose 87 Calcium 7.8 L Magnesium 2.0 Blood Type Antibody Screen Crossmatch 11/22/17 11/22/17 11/22/17 18:45 22:08 22:08 WBC 17.4 H 17.6 H RBC 3.05 L 3.05 L Hgb 9.0 L 9.1 L Hct 26 L 26 L MCV 85 85 MCH 30 30 MCHC 35 35 RDW 17 H 17 H Plt Count 102 L 108 L MPV 8.1 8.0 Neut % (Auto) 75.4 73.4 Lymph % (Auto) 17.7 L 20.0 L [place] % (Auto) 6.2 5.5 Eos % (Auto) 0.3 0.5 Baso % (Auto) 0.4 0.6 Absolute Neuts (auto) 13.1 H 12.9 H Absolute Lymphs (auto) 3.1 3.5 Absolute Monos (auto) 1.1 H 1.0 H Absolute Eos (auto) 0.1 0.1 Absolute Basos (auto) 0.1 0.1 Absolute Nucleated RBC 0 0 Nucleated RBC % 0 0.1 Hem Pathologist Commnt INR (Anticoag Therapy) Fibrinogen Sodium 137 Potassium 4.1 Chloride 109 Carbon Dioxide 25 Anion Gap 3 BUN 20 Creatinine 1.29 H Est GFR ( Amer) 58.0 Est GFR (Non-Af Amer) 47.9 BUN/Creatinine Ratio 15.5 Glucose 88 Calcium 8.0 L Magnesium 2.0 Blood Type Antibody Screen Crossmatch 11/23/17 11/23/17 04:55 04:55 WBC 15.9 H RBC 3.05 L Hgb 8.9 L Hct 26 L MCV 85 MCH 29 MCHC 34 RDW 17 H Plt Count 102 L MPV 8.0 Neut % (Auto) 74.7 Lymph % (Auto) 18.7 L [place] % (Auto) 5.7 Eos % (Auto) 0.7 Baso % (Auto) 0.2 Absolute Neuts (auto) 11.9 H Absolute Lymphs (auto) 3.0 Absolute Monos (auto) 0.9 H Absolute Eos (auto) 0.1 Absolute Basos (auto) 0 Absolute Nucleated RBC 0 Nucleated RBC % 0.1 Hem Pathologist Commnt INR (Anticoag Therapy) Fibrinogen Sodium 137 Potassium 4.1 Chloride 111 Carbon Dioxide 24 Anion Gap 2 BUN 19 Creatinine 1.18 H Est GFR ( Amer) 64.2 Est GFR (Non-Af Amer) 53.1 BUN/Creatinine Ratio 16.1 Glucose 68 L Calcium 7.9 L Magnesium 1.9 Blood Type Antibody Screen Crossmatch Studies: CXR 11/22 IMPRESSION: NO ACTIVE CARDIOPULMONARY DISEASE. Impression: 31F presents after post hemorrage Plan: Neuro - pain control CV - bp stable Pulm - oxygenating well on room air - cxr negative ID - wbc elevated - afebrile - completed 1 day of cefoxitin GI - advance diet as tolerated Renal - valerie - 2/2 hemorrhage and volume depletion - iv hydration - monitor i/o - monitor lytes - improving Heme - PPH - s/p 10 units of prbc, 7 units of FFP, 20 unit of cryo - received cytotec, hemabate, oxytocin, tranexamic acid - hgb stable Endo - no issue Cardiopulmonary Technician And Eeg Tech - not breast feeding Lines - piv audrey PPx - gi/dvt Full Code Stable for transfer to floor Critical Care Time: 40 mins
[2017-11-23] MEDS: Simethicone TAB* 80 MG TAB.CHEW PO SCH ×2 (10:09→13:37)
[2017-11-23] MEDS: Ferrous Gluconate TAB* 324 MG TAB PO SCH ×2 (10:09→19:59)
[2017-11-23] MEDS: Ibuprofen TAB* 600 MG PO PRN (13:37)
[2017-11-24] MEDS: Ibuprofen TAB* 600 MG PO PRN ×3 (03:54→18:00)
[2017-11-24] MEDS: Acetaminophen TAB* 325 MG PO PRN ×2 (03:54→11:36)
[2017-11-24 06:37] LABS: ABS Basophils 0.1 10^3/ul (0-0.2); ABS Eosinophils 0.2 10^3/ul (0-0.6); ABS Lymphocytes 2.7 10^3/ul (1.0-4.8); ABS Monocytes 0.7 10^3/ul (0-0.8); ABS Neutrophils 12.5 10^3/ul (1.5-7.7); ABS Nucleated RBC 0 10^3/ul; Eosinophil % 1.2 % (0-6); Hematocrit 30 % (35-47); Hemoglobin 10.5 g/dl (12.0-16.0); Lymphocyte % 16.7 % (25-47); Mean Corpuscular HGB Conc 35 g/dl (31-36); Mean Corpuscular Hemoglobin 29 pg (27-31); Mean Corpuscular Volume 85 fL (80-97); Mean Platelet Volume 8.2 um3 (7.4-10.4); Nucleated Red Blood Cells % 0.1; Platelet Count 145 10^3/ul (150-450); Red Blood Count 3.57 10^6/ul (4.00-5.40); Red Cell Distribution Width 17 % (10.5-15); White Blood Count 16.2 10^3/ul (3.5-10.8)
[2017-11-24] MEDS: Ferrous Gluconate TAB* 324 MG TAB PO SCH ×2 (09:40→20:47)
[2017-11-24] MEDS: Docusate CAP* 100 MG PO SCH ×3 (09:40→20:47)
[2017-11-24] MEDS ORDERED: NIFEdipine CAP* 10 MG PO ONE ×3 (18:12→19:34)
[2017-11-24] MEDS ORDERED: NIFEdipine CAP* 10 MG ONE (19:44)
[2017-11-25] MEDS: Ferrous Gluconate TAB* 324 MG TAB PO SCH (08:50)
[2017-11-25] MEDS: Docusate CAP* 100 MG PO SCH ×2 (08:50→17:01)
[2017-11-26] MEDS: Docusate CAP* 100 MG PO SCH (09:29)
[2017-11-26] MEDS: Ferrous Gluconate TAB* 324 MG TAB PO SCH (09:29)
[2017-11-26] MEDS ORDERED: Labetalol TAB* 100 MG PO SCH (10:00)
[2017-11-26 16:03] VITALS: BP 149/78
== END 2017-11-26 15:38 | disposition home or self-care (01) | DRG 541 ==
LOC: MCHOBOUT 07:46 → MCHOB 08:29 → ICU 19:57 → MCHOB 11-23 10:51
PROVIDERS: ADMIT Midwife; ATTEND Midwife
PROC: 3E033VJ Introduction of Other Hormone into Peripheral Vein, Percutaneous Approach (ICD-10-PCS; 2017-11-21)
PROC: 10907ZC Drainage of Amniotic Fluid, Therapeutic from Products of Conception, Via Natural or Artificial Opening (ICD-10-PCS; 2017-11-21)
PROC: 0HQ9XZZ Repair Perineum Skin, External Approach (ICD-10-PCS; 2017-11-21)
PROC: 10D17Z9 Manual Extraction of Products of Conception, Retained, Via Natural or Artificial Opening (ICD-10-PCS; 2017-11-21)
PROC: 10D07Z8 Extraction of Products of Conception, Other, Via Natural or Artificial Opening (ICD-10-PCS; 2017-11-21)
PROC: 30233K1 Transfusion of Nonautologous Frozen Plasma into Peripheral Vein, Percutaneous Approach (ICD-10-PCS; 2017-11-21)
PROC: 30233N1 Transfusion of Nonautologous Red Blood Cells into Peripheral Vein, Percutaneous Approach (ICD-10-PCS; 2017-11-21)
PROC: 10E0XZZ Delivery of Products of Conception, External Approach (ICD-10-PCS; principal; 2017-11-21 18:30)
DX: O75.89 Other specified complications of labor and delivery (principal); N17.9 Acute kidney failure, unspecified; Z37.0 Single live birth; D62 Acute posthemorrhagic anemia; O70.0 First degree perineal laceration during delivery; O72.2 Delayed and secondary postpartum hemorrhage; O90.81 Anemia of the puerperium; O76 Abnormality in fetal heart rate and rhythm complicating labor and delivery; O16.4 Unspecified maternal hypertension, complicating childbirth; G43.909 Migraine, unspecified, not intractable, without status migrainosus; Z3A.39 39 weeks gestation of pregnancy
CPT/HCPCS: 36415; 62325; 71045; 80048; 80076; 82310; 83735; 85025; 85027; 85049; 85060; 85384; 85610; 85730; 86850; 86900; 86901; 86922; 86927; 86965; 87641; 88307; 93005; P9012; A9270-GY; J0694; J2250; J2270; J2405; J3010; J3475; P9017; P9035; P9040